=== PATIENT | male | born 1945 | race Caucasian/White ===

== ENCOUNTER → 2024-01-03 13:49 | Outpatient (REF) | payer MEDICARE, OTHER, SELFPAY | LOC: RAD 13:49 | PROVIDERS: ATTENDING PHYSICIAN Surgery Vascular Surgery; FAMILY PHYSICIAN Internal Medicine | DX: I65.23 Occlusion and stenosis of bilateral carotid arteries (principal) | CPT/HCPCS: 93880 ==

== ENCOUNTER → 2024-08-14 09:56 | Outpatient (REF) | payer MEDICARE, OTHER, SELFPAY | LOC: RAD 09:56 | PROVIDERS: ATTENDING PHYSICIAN Registered Nurse; FAMILY PHYSICIAN Internal Medicine | DX: I65.23 Occlusion and stenosis of bilateral carotid arteries (principal) | CPT/HCPCS: 93880 ==

== ENCOUNTER → 2025-02-21 09:07 | Outpatient (REF) | payer MEDICARE, OTHER, SELFPAY | LOC: DHVS 09:07 | PROVIDERS: ATTENDING PHYSICIAN Surgery Vascular Surgery; FAMILY PHYSICIAN Internal Medicine | DX: I65.23 Occlusion and stenosis of bilateral carotid arteries (principal) | CPT/HCPCS: 93880 ==

== ENCOUNTER → 2025-09-01 13:20 | Outpatient (REF) | payer MEDICARE, OTHER, SELFPAY | LOC: RAD 13:20 | PROVIDERS: ATTENDING PHYSICIAN Surgery Vascular Surgery; FAMILY PHYSICIAN Internal Medicine; OTHER PHYSICIAN Registered Nurse | DX: I65.23 Occlusion and stenosis of bilateral carotid arteries (principal) | CPT/HCPCS: 93880 ==